=== PATIENT | female | born 2000 | race African-American/Black ===

== ENCOUNTER 2020-10-03 22:03 | Emergency (ER) | payer OTHER ==
[~2020-10-03] VITALS: Ht 157.5 cm; Wt 77.3 kg
[2020-10-03 23:05] VITALS: BP 128/67; PULSE 85; TEMP 98.4
== END 2020-10-03 23:05 | disposition home or self-care (01) ==
LOC: COL.ER 22:03
DX: T78.40XA Allergy, unspecified, initial encounter (principal)